=== PATIENT | male | born 1985 | race Caucasian/White ===

== ENCOUNTER 2020-09-18 11:50 | Emergency (ER) | payer OTHER ==
[~2020-09-18] VITALS: Ht 188 cm; Wt 83.9 kg
[~2020-09-18 11:50] MED LIST: AMPHETAMINE SAL20 MG PO
[2020-09-18] MEDS ORDERED: DICLOFENAC POTA50 MG PO (12:49)
== END 2020-09-18 13:00 | disposition home or self-care (01) ==
LOC: ER 11:50
DX: M70.21 Olecranon bursitis, right elbow (principal)